=== PATIENT | female | born 1945 | race Caucasian/White ===

== ENCOUNTER 2017-09-19 07:35 | Outpatient (CLI) | payer OTHER | END 2017-09-19 07:38 | disposition home or self-care (01) | LOC: NUCLEAR 07:35 | DX: E78.2 Mixed hyperlipidemia (principal); I11.9 Hypertensive heart disease without heart failure; I20.0 Unstable angina | CPT/HCPCS: 78452; 93017; A9500 ==

== ENCOUNTER 2018-01-25 11:16 | Emergency (ER) | payer OTHER ==
[~2018-01-25] VITALS: Ht 157.5 cm; Wt 69.4 kg
[2018-01-25] MEDS ORDERED: LIPITOR20 MG PO (11:44)
[2018-01-25] MEDS ORDERED: COZAAR25 MG PO (11:45)
== END 2018-01-25 13:01 | disposition home or self-care (01) ==
LOC: ER 11:16
DX: H57.89 Other specified disorders of eye and adnexa (principal); R60.0 Localized edema; T78.49XA Other allergy, initial encounter; X58.XXXA Exposure to other specified factors, initial encounter